=== PATIENT | female | born 1970 | race Caucasian/White ===

== ENCOUNTER → 2018-06-19 | Outpatient (CLI) | payer BC, OTHER ==
[~2018-06-19] MED LIST: CYCL5TAB PO; GABA-585 PO; GADOBUTROL 10 MMOL/10 ML VIAL IV ONE; NAPR500T8 PO; OMEP20TA8 PO
--- NOTE | 2018-06-19 12:35 | RAD ---
EXAM: Brain MRI with and without contrast. HISTORY: Ataxia. TECHNIQUE: Multiplanar, multisequence magnetic resonance imaging of the brain was performed prior to and following the administration of 9 cc Gadavist intravenous contrast. COMPARISON: Head CT dated 05/10/2018. FINDINGS: There is no restricted diffusion to suggest acute or subacute infarction. There is no susceptibility effect to suggest hemorrhage. There is no mass effect or midline shift. There is no hydrocephalus. There are few small nonspecific foci of T2/FLAIR hyperintensity within the cerebral white matter. The orbits are unremarkable. There is minimal right maxillary sinus mucosal thickening with a suspected tiny mucous retention cyst. The mastoid air cells are clear. There are normal flow voids within the cerebral vessels. The sella is prominent. However, this is not clearly expanded to suggest empty sella syndrome. No suspicious enhancing lesion is seen. IMPRESSION: 1. No acute intracranial finding. 2. Few nonspecific focal areas of signal change within the cerebral white matter. This is most commonly due to chronic small vessel disease. The differential also includes etiologies such as chronic migraine headaches, and less likely, demyelinating disease. Electronically signed by: Ary Bedoya MD (06/19/2018 12:32 PM) [id number]
== END | disposition home or self-care (01) ==
LOC: MRI 08:22
PROVIDERS: ATTEND Psychiatry & Neurology Neurology
DX: R27.0 Ataxia, unspecified (principal); Z88.0 Allergy status to penicillin; Z88.2 Allergy status to sulfonamides; Z88.8 Allergy status to other drugs, medicaments and biological substances; Z90.710 Acquired absence of both cervix and uterus
CPT/HCPCS: 70553; A9585